=== PATIENT | female | born 1970 | race Caucasian/White ===

== ENCOUNTER → 2017-04-17 | Emergency (ER) | payer MEDICAID ==
[2017-04-17 02:38] VITALS: BMI 27.9
[2017-04-17 03:00] VITALS: BP 116/70; PULSE 78; RESP 18; TEMP 98.1; O2SAT 99
--- NOTE | 2017-04-17 03:10 | ED PDOC ---
Arrival/HPI - General Chief Complaint: Back Pain Time Seen by Provider: 04/17/17 02:51 Historian: Patient - History of Present Illness Narrative History of Present Illness (Text): 04/17/17 03:04 Penny Kwon is a 46 year old female who presents to the emergency department accompanied by daughter complaining of intermittent right lower back pain radiating to her abdomen for the past 2 days. Patient reports back pain is somewhat associated with movement. Patient reports she took Ibuprofen at home tonight with improvement of symptoms. Patient denies any nausea, vomiting, diarrhea, urinary symptoms, neck pain, headache, dizziness, or any other complaints. Time/Duration: < week (2 days) Symptom Onset: Gradual Symptom Course: Unchanged, Intermittent Activities at Onset: Rest, Light Context: Home Past Medical History - Provider Review Nursing Documentation Reviewed: Yes - Hematological/Oncological Hx Blood Transfusions: No Hx Blood Transfusion Reaction: No - Psychiatric Hx Substance Use: No - Anesthesia Hx Malignant Hyperthermia: No Family/Social History - Physician Review Nursing Documentation Reviewed: Yes Family/Social History: No Known Family HX Smoking Status: n Hx Alcohol Use: No Hx Substance Use: No Allergies/Home Meds Allergies/Adverse Reactions: Allergies No Known Allergies Allergy (Verified 07/21/14 10:18) Review of Systems - Physician Review All systems were reviewed & negative as marked: Yes - Review of Systems Constitutional: Normal. absent: Fevers Eyes: Normal ENT: Normal Respiratory: Normal. absent: SOB, Cough Cardiovascular: Normal. absent: Chest Pain Gastrointestinal: absent: Diarrhea, Nausea, Vomiting Genitourinary Female: Normal. absent: Dysuria, Frequency, Hematuria, Urine Output Changes Musculoskeletal: Back Pain Skin: Normal. absent: Rash Neurological: Normal. absent: Headache, Dizziness Endocrine: Normal Hemo/Lymphatic: Normal Psychiatric: Normal Physical Exam Vital Signs Reviewed: Yes Vital Signs Temp Pulse Resp BP Pulse Ox 04/17/17 02:49 98.1 F 78 18 116/70 99 Temperature: Afebrile Blood Pressure: Normal Pulse: Regular Respiratory Rate: Normal Appearance: Positive for: Well-Appearing, Non-Toxic, Comfortable Pain Distress: None Mental Status: Positive for: Alert and Oriented X 3 - Systems Exam Head: Present: Atraumatic, Normocephalic Pupils: Present: PERRL Extroacular Muscles: Present: EOMI Conjunctiva: Present: Normal Mouth: Present: Moist Mucous Membranes Neck: Present: Normal Range of Motion Respiratory/Chest: Present: Clear to Auscultation, Good Air Exchange. No: Respiratory Distress, Accessory Muscle Use Cardiovascular: Present: Regular Rate and Rhythm, Normal S1, S2. No: Murmurs Abdomen: Present: Normal Bowel Sounds. No: Tenderness, Distention, Peritoneal Signs Back: Present: Pain with Leg Raise (Some pain with right straight leg raising). No: CVA Tenderness, Midline Tenderness Upper Extremity: Present: Normal Inspection. No: Cyanosis, Edema Lower Extremity: Present: Normal Inspection. No: Edema Neurological: Present: GCS=15, CN II-XII Intact, Speech Normal Skin: Present: Warm, Dry, Normal Color. No: Rashes Psychiatric: Present: Alert, Oriented x 3, Normal Insight, Normal Concentration Medical Decision Making ED Course and Treatment: 04/17/17 03:04 Impression: 46 year old female complaining of right lower back pain radiating to abdomen for 2 days. Differential Diagnosis included but are not limited to: musculoskeletal strain vs. kidney stone Plan: -- Urinalysis - Reassess and disposition Progress Notes: 04/17/17 05:13 Discussed lab results with pt, pt was offered CT scan/further testing. Pt refuses, states she does not wish to stay. Pt will sign out AMA. Leaving Against Medical Advice (AMA): This patient is choosing to leave against medical advice. I have personally explained to the patient that choosing to do so may result in permanent bodily harm or . I have discussed at great length that without further evaluation and monitoring there may be unforeseen circumstances and/or deterioration causing permanent bodily harm or as a result of their choice. The patient is alert, oriented, and shows the mental capacity to make clear decisions regarding the patients health care at this time. The patient continues to wish to leave against medical advice. In light of the patients decision to leave AMA, patient is aware of the importance of following up as instructed. The patient has been advised that they should return to the ED immediately if they change their mind at any time, or if their condition begins to change or worsen in any way - Lab Interpretations Lab Results: Lab Results 04/17/17 03:20: Urine Color Yellow, Urine Appearance Sl cloudy, Urine pH 6.0, Ur Specific [place] 1.025, Urine Protein Negative, Urine Glucose (UA) Negative, Urine Ketones Negative, Urine Blood Moderate H, Urine Nitrate Negative, Urine Bilirubin Negative, Urine Urobilinogen 0.2, Ur Leukocyte Esterase Small H, Urine RBC 0 - 2, Urine WBC 2 - 5, Ur Epithelial Cells 3 - 4, Urine Bacteria Small, Urine HCG, Qual Negative I have reviewed the lab results: Yes - RAD Interpretation Radiology Orders: 04/17/17 04:50 ABD & PELVIS W/O PO OR IV CONT [CT] Stat - Scribe Statement The provider has reviewed the documentation as recorded by the Grover Brewer Provider Attestation: All medical record entries made by the Alexisibchacorta were at my direction and personally dictated by me. I have reviewed the chart and agree that the record accurately reflects my personal performance of the history, physical exam, medical decision making, and the department course for this patient. I have also personally directed, reviewed, and agree with the discharge instructions and disposition. Disposition/Present on Arrival - Present on Arrival Any Indicators Present on Arrival: No History of DVT/PE: No History of Uncontrolled Diabetes: No Urinary Catheter: No History of Decub. Ulcer: No History Surgical Site Infection Following: None - Disposition Have Diagnosis and Disposition been Completed?: Yes Diagnosis: Back pain, Hematuria Disposition: AGAINST MEDICAL ADVICE Disposition Time: 05:15 Patient Problems: Current Active Problems Problem Status Onset Back pain Acute Hematuria Acute Condition: STABLE Discharge Instructions (ExitCare): Back Pain (ED), Acute Hematuria (ED)
[2017-04-17 04:12] LABS: URINE BILIRUBIN NEGATIVE (NEGATIVE); URINE BLOOD MODERATE (NEGATIVE); URINE GLUCOSE (UA) NEGATIVE (NEGATIVE); URINE KETONE NEGATIVE (NEGATIVE); URINE LEUKOCYTE ESTERASE SMALL Leu/uL (NEGATIVE); URINE PROTEIN NEGATIVE mg/dL (<30 mg/dL); URINE UROBILINOGEN 0.2 E.U./dL (<1 E.U./dL)
[2017-04-17 04:19] LABS: URINE APPEARANCE SL CLOUDY (CLEAR); URINE COLOR YELLOW (YELLOW)
[2017-04-17 04:22] LABS: URINE RBC 0 - 2 /hpf (0-2)
[2017-04-17 04:23] LABS: URINE BACTERIA SMALL (NEG)
== END | disposition left against medical advice (07) ==
LOC: ED 02:36
DX: M54.5 Low back pain (principal); R31.9 Hematuria, unspecified